=== PATIENT | male | born 1950 | race Caucasian/White ===

== ENCOUNTER 2021-07-26 14:31 | Emergency (ER) | payer OTHER | END 2021-07-26 18:30 | disposition home or self-care (01) | LOC: ER1 14:31 | DX: Z43.1 Encounter for attention to gastrostomy (principal) | CPT/HCPCS: 43762; 74018; 99282; Q9963 ==

== ENCOUNTER 2021-08-17 14:03 | Inpatient (IN) | payer OTHER ==
[~2021-08-17] VITALS: Ht 193 cm; Wt 36.3 kg
[2021-08-17 15:01] LABS: HEMOGLOBIN 12.6 gm/dl (14.0-17.5); RED BLOOD COUNT 3.74 M/UL (4.20-5.50); WHITE BLOOD COUNT 17.5 K/UL (4.5-11.0)
[2021-08-17 16:46] LABS: BUN/CREATININE RATIO 51 (0-10)
--- NOTE | 2021-08-18 15:44 | NUR ---
pt noncompliant with lab draws today, he has vomited then using his socks to clean the debris up. the guards x 2 at the bedside, the lady came to the desk and said he was dinking his own urine from the urinal. i asked him why he was doing this he said it is his urine. urinal removed for patient safety as he has a g tube admitted for aspiration pneumonia and history of esophageal cancer leaving him npo. patient has asked for water several times, oral care provided he sucks on the oral swab. laborer heading offered to draw labs the one time he agreed he swung his arm at him. dr yañez called a message has been left awaiting a return call.
--- NOTE | 2021-08-18 17:09 | NUR ---
Pt. tube feed became unattached. When we attempted to hook it back up pt. refused. Pt. states tube feed is too thick and that it will keep coming apart. Tube feed was not reattached and turned off.
[2021-08-18] MEDS ORDERED: LORATADINE10 MG PO (17:11)
[2021-08-18] MEDS ORDERED: SEROQUEL XR300 MG PO (17:12)
[2021-08-18] MEDS ORDERED: SYNTHROID50 MCG PO (17:13)
[2021-08-19 04:17] LABS: BUN/CREATININE RATIO 38 (0-10)
[2021-08-19 04:36] LABS: RED BLOOD COUNT 2.98 M/UL (4.20-5.50)
[2021-08-20 03:29] LABS: HEMOGLOBIN 11.4 gm/dl (14.0-17.5); RED BLOOD COUNT 3.42 M/UL (4.20-5.50)
[2021-08-20 03:51] LABS: BUN/CREATININE RATIO 26 (0-10)
[2021-08-21 06:13] LABS: HEMOGLOBIN 10.5 gm/dl (14.0-17.5); RED BLOOD COUNT 3.21 M/UL (4.20-5.50)
[2021-08-21 06:16] LABS: WHITE BLOOD COUNT 6.5 K/UL (4.5-11.0)
[2021-08-21 06:38] LABS: BUN/CREATININE RATIO 43 (0-10)
[2021-08-22 05:16] LABS: HEMOGLOBIN 10.3 gm/dl (14.0-17.5); RED BLOOD COUNT 3.1 M/UL (4.20-5.50)
[2021-08-22 05:32] LABS: WHITE BLOOD COUNT 8.4 K/UL (4.5-11.0)
[2021-08-22 05:53] LABS: BUN/CREATININE RATIO 44 (0-10)
--- NOTE | 2021-08-22 12:21 | NUR ---
PT IS DOING FEEDING'S HIMSELF WILL NOT ALLOW NURSING STAFF TO GIVE THE FEEDINGS AND MEDICATIONS TO HIM
--- NOTE | 2021-08-22 17:47 | NUR ---
PT STATES THAT HE DOES NOT WANT ANY MORE ANTIBIOTICS GIVEN, WHEN ASKED WHY HE STATED HE JUST DOESN'T WANT ANY MORE.
[2021-08-24 03:35] LABS: HEMOGLOBIN 10.6 gm/dl (14.0-17.5); RED BLOOD COUNT 3.21 M/UL (4.20-5.50)
[2021-08-24 04:08] LABS: BUN/CREATININE RATIO 39 (0-10)
[2021-08-25 04:13] LABS: HEMOGLOBIN 9.6 gm/dl (14.0-17.5); RED BLOOD COUNT 2.91 M/UL (4.20-5.50)
[2021-08-25 04:29] LABS: WHITE BLOOD COUNT 6.3 K/UL (4.5-11.0)
[2021-08-25 04:31] LABS: BUN/CREATININE RATIO 42 (0-10)
[2021-08-25] MEDS ORDERED: ZYVOX600 MG PO (09:47)
[2021-08-25] MEDS ORDERED: PROAIR HFA8.5 GM INH (09:47)
[2021-08-25] MEDS ORDERED: MEDROL4 MG PO (09:47)
[2021-08-25] MEDS ORDERED: CEFDINIR300 MG PO (09:47)
== END 2021-08-25 11:58 | DRG 871 ==
LOC: ER1 14:03 → CDU 16:30 → M/S 16:30
PROVIDERS: Family Medicine; Internal Medicine; Internal Medicine Pulmonary Disease; ADMIT Internal Medicine
PROC: 3E03329 Introduction of Other Anti-infective into Peripheral Vein, Percutaneous Approach (ICD-10-PCS; principal; 2021-08-17)
PROC: 5A0945A Assistance with Respiratory Ventilation, 24-96 Consecutive Hours, High Flow/Velocity Cannula (ICD-10-PCS; 2021-08-17)
PROC: 0DH63UZ Insertion of Feeding Device into Stomach, Percutaneous Approach (ICD-10-PCS; 2021-08-18)
DX: A41.02 Sepsis due to Methicillin resistant Staphylococcus aureus (principal); J96.21 Acute and chronic respiratory failure with hypoxia; E43 Unspecified severe protein-calorie malnutrition; J15.212 Pneumonia due to Methicillin resistant Staphylococcus aureus; J44.0 Chronic obstructive pulmonary disease with (acute) lower respiratory infection; E87.0 Hyperosmolality and hypernatremia; Z68.1 Body mass index [BMI] 19.9 or less, adult; J44.1 Chronic obstructive pulmonary disease with (acute) exacerbation; R47.89 Other speech disturbances; Z20.822 Contact with and (suspected) exposure to COVID-19; R65.20 Severe sepsis without septic shock; E87.6 Hypokalemia; E86.0 Dehydration; E03.9 Hypothyroidism, unspecified; R59.0 Localized enlarged lymph nodes; Z85.01 Personal history of malignant neoplasm of esophagus; Z85.89 Personal history of malignant neoplasm of other organs and systems; Z99.81 Dependence on supplemental oxygen; Z98.890 Other specified postprocedural states; Z79.899 Other long term (current) drug therapy; Z91.14 Patient's other noncompliance with medication regimen
CPT/HCPCS: 0240U; 36415; 36600; 71045; 71250; 80048; 80053; 80202; 82550; 82553; 82803; 83605; 83735; 83880; 84100; 84132; 84484; 85025; 85027; 86140; 87040; 87070; 87077; 87081; 87186; 87205; 93005; 94640; 94664; 94760; 96374; 96375; 99285; J0696; J1650; J1940; J2543; J2930; J3370; J7040; J7070